=== PATIENT | female | born 1945 | race Caucasian/White ===

== ENCOUNTER 2016-09-25 17:33 | Emergency (ER) | payer MEDICARE, OTHER ==
[~2016-09-25] VITALS: Wt 70.5 kg
[~2016-09-25 17:33] MED LIST: AZIT250T94 PO; D-ME473S2 PO; HYDR-3498 PO; IBUP400T22 PO; LEVO50TA74 PO; NAPR-260 PO; TRAM50TA2 PO; TYL500 PO
[2016-09-25] MEDS ORDERED: LEVO25TA53 PO (18:30)
[2016-09-25] MEDS ORDERED: LATA2.5D2 BOTH EYES (18:30)
[2016-09-25 18:42] LABS: BASOPHILS % 0.4 % (0.0-2.0); EOSINOPHILS # 0.4 10^3/ul (0.0-0.5); EOSINOPHILS % 4.6 % (0.0-7.0); HEMATOCRIT 36.7 % (37.0-47.0); HEMOGLOBIN 12.1 g/dl (12.0-16.0); LYMPHOCYTES % 24.8 % (15.0-51.0); MEAN CORPUSCULAR HEMOGLOBIN 29.5 pg (29.0-33.0); MEAN CORPUSCULAR VOLUME 89.5 fl (82.0-101.0); MONOCYTE # 0.7 10^3/ul (0.3-0.9); MONOCYTES % 9.2 % (0.0-11.0); NEUTROPHIL # 4.8 10^3/ul (1.6-7.5); NEUTROPHILS % 60.9 % (39.0-77.0); PLATELET COUNT 220 10^3/UL (140-415); RED CELL DISTRIBUTION WIDTH 13.4 % (11.5-14.5); WHITE BLOOD COUNT 7.9 10^3/ul (4.8-10.8)
[2016-09-25 18:45] LABS: ADD SCAN DIFF NO
--- NOTE | 2016-09-25 18:50 | RADRPT ---
PROCEDURE: XR Chest. CLINICAL INDICATION: Chest Pain. TECHNIQUE: Single frontal view of the chest was obtained. COMPARISON: None available FINDINGS: The cardiomediastinal silhouette is mildly enlarged. There is mild to moderate aortic calcification . Pulmonary vasculature is within normal limits. Lung tan appear hyperinflated.. No signs of pleural fluid or pneumothorax are seen. The osseous structures and soft tissues are unre markable. IMPRESSION: 1. Mild cardiomegaly. Mild to moderate aortic calcification. 2. Pulmonary vascular congestion. 3. Lung hyperinflation suggestive of COPD. RPTAT: DD .Felipe Real MD, Date Time Electronically viewed and signed by .Felipe Real MD, MD on 09/25/2016 18:50 .T/
[2016-09-25 19:00] LABS: ANION GAP 13 (8-16); BLOOD UREA NITROGEN 17 mg/dl (7-20); CALCIUM 9.2 mg/dl (8.4-10.2); CARBON DIOXIDE 26 mmol/L (21-31); CHLORIDE 104 mmol/L (97-110); CREATININE 0.72 mg/dl (0.44-1.00); GLUCOSE 120 mg/dl (70-220); POTASSIUM 3.6 mmol/L (3.5-5.1); SODIUM 139 mmol/L (135-144)
[2016-09-25 19:02] LABS: INR 0.96; PARTIAL THROMBOPLASTIN TIME 31.4 Sec (25.0-35.0); PROTIME 12.8 Sec (12.2-14.2)
[2016-09-25 19:15] LABS: TROPONIN-I < 0.012 ng/ml (0.00-0.12)
[2016-09-25] MEDS ORDERED: ALBU8.5H3 INH (19:19)
--- NOTE | 2016-09-25 19:19 | ERD ---
ER Documentation Chief Complaint Date/Time DATE: 09/25/16 TIME: 19:17 Chief Complaint USED CHEMICAL TO CLEAN, C/O SOB, PALPITATION, BETTER NOW HPI This 71-year-old female presents to the ER for evaluation of shortness of breath that occurred when she was cleaning her bathroom with [employer]man[employer] and bleach. She stated that she began to get mildly short of breath and a cough and has some chest pain when she coughed. The patient states that she stepped out of the bathroom and is feeling better at this time is having no active chest pain however she came to the ER for evaluation. ROS All systems reviewed and are negative except as per history of present illness. Medications Home Meds Reported Medications Latanoprost (Latanoprost) 2.5 Ml Drops, 1 DROP BOTH EYES QHS, #1 BOTTLE 09/25/16 Levothyroxine Sodium* (Levothyroxine Sodium*) 25 Mcg Tablet, 25 MCG PO BEFORE BREAKFAST, #30 TAB 09/25/16 Discontinued Reported Medications Levothyroxine Sodium* (Levothyroxine Sodium*) Unknown Strength Tablet, PO BEFORE BREAKFAST, #30 TAB 11/26/15 Discontinued Scripts Tramadol HCl (Tramadol HCl) 50 Mg Tablet, 50 MG PO Q6 Y for SEVERE PAIN LEVEL 7- 10, #20 TAB Prov:DAYA KINGSTON NP 11/26/15 Ibuprofen* (Motrin*) 400 Mg Tab, 400 MG PO Q6H Y for PAIN AND OR ELEVATED TEMP, #30 TAB Prov:DAYA KINGSTON NP 11/26/15 Acetaminophen* (Tylenol*) 500 Mg Tab, 500 MG PO Q4H Y for MILD PAIN LEVEL 1-3 for 14 Days, TAB Prov:BRITNI LINARES MD 05/21/15 Dextromethorphan Hb-Promethazine Hcl* (Promethazine DM* Syrup) 473 Ml Syrup, 5 ML PO Q6 Y for COUGH for 7 Days, ML Prov:BRITNI LINARES MD 05/21/15 Azithromycin* (Zithromax*) 250 Mg Tablet, 250 MG PO .ZPACK DIRECTED, #6 TAB TAKE 500 MG (2 TABS) THE FIRST DAY THEN 250 MG (1 TAB) DAYS 2-5 Prov:BRITNI LINARES MD 05/21/15 Hydrocodone Bit-Acetaminophen* ([place]*) 5-325 Mg Tab, 1 TAB PO Q6 Y for PAIN, # 11 TAB Prov:ZOEY ARIZA DO 10/30/14 Naproxen* (Naprosyn*) 500 Mg Tablet, 500 MG PO BID Y for PAIN AND/OR INFLAMMATION, #15 TAB Prov:ZOEY ARIZA DO 10/30/14 Allergies Allergies: Coded Allergies: No Known Allergy (Unverified , 09/25/16) PMhx/Soc History of Surgery: No Anesthesia Reaction: No Hx Neurological Disorder: No Hx Respiratory Disorders: No Hx Cardiac Disorders: No Hx Psychiatric Problems: No Hx Miscellaneous Medical Probl: Yes (HYPOTHYROIDISM) Hx Alcohol Use: No Hx Substance Use: No Hx Tobacco Use: No Smoking Status: Never smoker Physical Exam Vitals Vital Signs Date Time Temp Pulse Resp B/P Pulse Ox O2 Delivery O2 Flow Rate FiO2 09/25/16 17:36 98.7 72 16 129/57 95 Physical Exam INITIAL VITAL SIGNS: Reviewed by me GENERAL: The patient is well developed and appropriate for usual state of health in no apparent distress HEENT: Pupils equal, round, and reactive to light. EOMI. There is no scleral icterus. NECK: C-spine is soft and supple, there is no meningismus. There is no cervical lymphadenopathy. LUNGS: Clear to auscultation bilaterally. There are no rales, wheezes or rhonchi. HEART: Regular rate and rhythm, no murmurs, clicks, rubs or gallops. ABDOMEN: Soft, non-tender, non-distended. There are bowel sounds in all four quadrants. No rebound or guarding. EXTREMITIES: There is no peripheral cyanosis or edema. No focal swelling or erythema. NEUROLOGICAL: The patient moves all four extremities with 5/5 strength. Cranial nerves II - XII are intact. Normal gait. Alert and oriented SKIN: There is no apparent rash or petechiae. HEME/LYMPHATIC: There is no evidence of excessive bruising or lymphedema. PSYCHIATRIC: The patient does not appear anxious or depressed. Result Diagram: 09/25/16 1830 09/25/16 1830 Results 24 hrs Laboratory Tests Test 09/25/16 18:30 White Blood Count 7.910^3/ul Red Blood Count 4.1010^6/ul Hemoglobin 12.1g/dl Hematocrit 36.7% Mean Corpuscular Volume 89.5fl Mean Corpuscular Hemoglobin 29.5pg Mean Corpuscular Hemoglobin Concent 33.0g/dl Red Cell Distribution Width 13.4% Platelet Count 64623^3/UL Mean Platelet Volume 11.0fl Neutrophils % 60.9% Lymphocytes % 24.8% Monocytes % 9.2% Eosinophils % 4.6% Basophils % 0.4% Nucleated Red Blood Cells % 0.0/100WBC Neutrophils # 4.810^3/ul Lymphocytes # 2.010^3/ul Monocytes # 0.710^3/ul Eosinophils # 0.410^3/ul Basophils # 0.010^3/ul Nucleated Red Blood Cells # 0.010^3/ul Prothrombin Time 12.8Sec Prothrombin Time Ratio 1.0 INR International Normalized Ratio 0.96 Activated Partial Thromboplast Time 31.4Sec Sodium Level 139mmol/L Potassium Level 3.6mmol/L Chloride Level 104mmol/L Carbon Dioxide Level 26mmol/L Anion Gap 13 Blood Urea Nitrogen 17mg/dl Creatinine 0.72mg/dl Glucose Level 120mg/dl Calcium Level 9.2mg/dl Troponin I < 0.012ng/ml Procedures/MDM EKG: Rate/Rhythm: [Normal Sinus Rhythm] QRS, ST, T-waves: [No changes consistent w/ acute ischemia] Impression: [No evidence of ischemia or arrhythmia] Chest X-ray 1V Interpreted by me: Soft Tissue: No acute abnormalities Bones: No acute abnormalities Mediastinum/Cardiac Silhouette/Lungs: [No acute abnormalities] This 71-year-old female presents to the emergency room for evaluation of chest pain and mild shortness of breath. The patient was cleaning her bathroom with [employer] and bleach and stated that she became mildly short of breath. She states that she started to cough and has some chest pain. The patient stated her chest pain resolved and her shortness of breath resolved when she exited the bathroom. In the emergency room she was nontoxic appearing, not hypoxic, no respiratory distress. I did obtain lab work including an EKG which is nonischemic. Troponin is negative and chest x-ray is clear at this time. The patient does have signs of COPD on chest x-ray and I feel that her chest pain or shortness of breath which has now completely resolved secondary to chemical irritation from inhaling chemical fumes. The patient states she is feeling better at this time and will be discharged home with an albuterol inhaler per Departure Diagnosis: Primary Impression: Chemical exposure Additional Impression: Chest pain Condition: Stable PADMAJA MONCADA DO Sep 25, 2016 19:18
[2016-09-25 20:01] VITALS: BP 106/63; PULSE 59; RESP 16; TEMP 98.2
== END 2016-09-25 20:03 | disposition home or self-care (01) ==
LOC: E/R 17:33
DX: T65.891A Toxic effect of other specified substances, accidental (unintentional), initial encounter (principal); R07.9 Chest pain, unspecified; T54.91XA Toxic effect of unspecified corrosive substance, accidental (unintentional), initial encounter; E03.9 Hypothyroidism, unspecified
CPT/HCPCS: 36415; 71010; 80048; 84484; 85025; 85610; 85730; 93005